=== PATIENT | female | born 1965 | race Caucasian/White ===

== ENCOUNTER 2016-10-23 06:03 | Day surgery (SDC) | payer OTHER ==
[2016-10-20 10:24] VITALS: BMI 27.3
[2016-10-23] MEDS ORDERED: PROPOFOL 20 ML ONE ×2 (07:09)
[2016-10-23] MEDS ORDERED: MIDAZOLAM HCL 2 MG/2 ML SINGLE DOSE VIAL ONE (07:09)
[2016-10-23] MEDS ORDERED: SUCCINYLCHOLINE CHLORIDE 200 MG/10 ML VIAL ONE (07:09)
[2016-10-23] MEDS ORDERED: DEXAMETHASONE SOD PHOSPHATE 4 MG/1 ML VIAL ONE (07:10)
[2016-10-23] MEDS ORDERED: KETOROLAC TROMETHAMINE 30 MG/1 ML VIAL ONE (07:10)
[2016-10-23] MEDS ORDERED: ONDANSETRON 4 MG/2 ML VIAL ONE (07:10)
[2016-10-23] MEDS ORDERED: LIDOCAINE HCL/PF 2% SDV 5ML VIAL ONE (07:14)
[2016-10-23] MEDS ORDERED: BUPIVACAINE HCL/EPINEPHRINE/PF 30 ML VIAL IJ ONE (07:16)
[2016-10-23] MEDS ORDERED: ROCURONIUM BROMIDE 50 MG/5 ML VIAL ONE ×2 (07:41→08:28)
[2016-10-23] MEDS ORDERED: ceFAZolin SODIUM 1 GM VIAL ONE (07:59)
[2016-10-23] MEDS ORDERED: TRANEXAMIC ACID 1000 MG/10 ML VIAL ONE (08:06)
[2016-10-23] MEDS ORDERED: ePHEDrine SULFATE 50 MG/1 ML AMPULE ONE (08:14)
[2016-10-23] MEDS ORDERED: NEOSTIGMINE METHYLSULFATE 0.5 MG/ML - 10 ML MDV ONE (08:37)
[2016-10-23] MEDS ORDERED: HYDROmorphone HCL/PF 1 MG/ML VIAL (FOR PYXIS CHARGING ONLY) ONE (09:17)
--- NOTE | 2016-10-23 09:19 | OP ---
Operative Note - Note: Operative Date: 10/23/16 Pre-Operative Diagnosis: left peroneal nerve compression Operation: left leg peroneal nerve decompression Post-Operative Diagnosis: Same as Pre-op Surgeon: Sean Mendoza Anesthesiologist/HANDMADE TILE ARTIST: Frederick Conti Anesthesia: General Operative Report Dictated: Yes
--- NOTE | 2016-10-23 09:23 | DS ---
Physical Examination Vital Signs: Vital Signs Temperature 98.3 F 10/23/16 06:39 Pulse Rate 95 H 10/23/16 06:39 Respiratory Rate 18 10/23/16 06:39 Blood Pressure 144/94 10/23/16 06:39 O2 Sat by Pulse Oximetry (%) 100 10/23/16 06:39 Discharge Summary Reason For Visit: LEFT PERONEAL NERVE COMPRESSION Condition: Good - Instructions Diet, Activity, Other Instructions: You may be weight bearing as tolerated. May move the knee as tolerated. Keep toes/ankles moving to prevent blood clots. Aspiring 325 mg twice ag day, start today. Continue for two weeks to decrease blood clot risk. Return to office in 2 weeks for followup Disposition: HOME - Home Medications Comprehensive Discharge Medication List: Ambulatory Orders Oxycodone HCl 5 mg PO TID PRN 10/20/16 Pregabalin [Lyrica] 100 mg PO BID 10/20/16
[2016-10-23] MEDS: HYDROmorphone HCL CARPU-JECT 1 MG/1 ML DISP.SYRIN ONE ×2 (09:32→09:42)
[2016-10-23] MEDS ORDERED: HYDROmorphone HCL CARPU-JECT 1 MG/1 ML DISP.SYRIN ONE (09:57)
[2016-10-23] MEDS ORDERED: HYDROmorphone HCL CARPU-JECT 1 MG/1 ML DISP.SYRIN IVPUSH ONE (10:20)
[2016-10-23] MEDS ORDERED: LACTATED RINGERS SOLUTION 1,000 ML IV SCH (10:30)
[2016-10-23] MEDS ORDERED: ONDANSETRON 4 MG/2 ML VIAL IVPUSH PRN (10:55)
[2016-10-23] MEDS ORDERED: oxyCODONE HCL 5 MG TABLET PO PRN (10:56)
[2016-10-23 11:44] VITALS: BP 140/87; PULSE 87; TEMP 98.6
--- NOTE | 2016-10-23 14:15 | SURG ---
Surgery Corporate Sales Trainer Note Corporate Sales Trainer: Miranda Hernandez PA-C Date of Service: 10/23/16 Diagnosis: left peroneal nerve compression Procedure: left leg peroneal nerve decompression I was present for the entirety of the operative procedure. For further detail, please refer to operative report. Visit type - Case Type Case Type: Scheduled Admission - Emergency Emergency Visit: No - New patient This patient is new to me today: Yes Date on this admission: 10/23/16 - Critical Care Critical Care patient: No
== END 2016-10-23 11:40 | disposition home or self-care (01) ==
LOC: FASU 06:03
PROVIDERS: ATTEND Orthopaedic Surgery
PROC: 01NH0ZZ Release Peroneal Nerve, Open Approach (ICD-10-PCS; principal; 2016-10-23 08:13)
DX: S84.12XA Injury of peroneal nerve at lower leg level, left leg, initial encounter (principal); X58.XXXA Exposure to other specified factors, initial encounter; Y93.9 Activity, unspecified; Y92.9 Unspecified place or not applicable
CPT/HCPCS: 84703; 94760